=== PATIENT | female | born 1940 | race Caucasian/White ===

== ENCOUNTER 2019-07-29 15:28 | Inpatient (IN) | payer MEDICARE, BC ==
[~2019-07-29] VITALS: Ht 154.9 cm; Wt 51.3 kg
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
--- NOTE | 2019-07-29 15:51 | NUR ---
CALLED PT DAUGHTER PER PT REQUEST. JOVAN [phone] LEFT A MESSAGE
[2019-07-29 16:43] LABS: BASOPHILS # (AUTO) 0.1 /CMM (0.0-0.2); BASOPHILS % (AUTO) 0.2 % (0.0-2.0); EOSINOPHILS % (AUTO) 0.8 % (0.0-6.0); HEMATOCRIT 35 % (33-45); LYMPHOCYTES # (AUTO) 22.3 /CMM (0.8-4.8); LYMPHOCYTES % (AUTO) 79.9 % (20.0-44.0); MEAN CORPUSCULAR HGB CONC 31 g/dl (31.0-36.0); MEAN CORPUSCULAR VOLUME 89 fL (82-100); MONOCYTES # (AUTO) 0.5 /CMM (0.1-1.30); MONOCYTES % (AUTO) 1.8 % (2.0-12.0); NEUTROPHILS # (AUTO) 4.8 /CMM (1.8-8.9); NEUTROPHILS % (AUTO) 17.3 % (43.0-81.0); PLATELET COUNT (AUTO) 238 /CMM (150-450); RED BLOOD CELL COUNT(AUTO) 3.94 MIL/uL (4.0-5.2)
[2019-07-29 16:56] LABS: CALCIUM, SERUM 8.6 mg/dL (8.5-10.1); CARBON DIOXIDE 27 mmol/L (21-32); CHLORIDE 108 mmol/L (98-107); CREATININE 1.6 mg/dL (0.6-1.3); GLUCOSE 174 mg/dL (74-106); POTASSIUM 4.5 mmol/L (3.5-5.1); SODIUM SERUM 141 mmol/L (136-145); UREA NITROGEN, BLOOD 24 mg/dL (7-18)
[2019-07-29 17:46] LABS: MONOCYTES % (MANUAL) 1 % (0-11.0); NEUTROPHILS % (MANUAL) 19 (42-76)
[2019-07-29 17:50] LABS: LYMPHOCYTES % (MANUAL) 75 % (16-48); REACTIVE LYMPHOCYTES 5 % (0-0)
--- NOTE | 2019-07-29 18:16 | NUR ---
TURNED IN MOVE SHEET TO ADMITTING
[2019-07-29] MEDS ORDERED: ONDANSETRON 4 MG TAB.RAPDIS SL ONE (18:30)
[2019-07-29] MEDS ORDERED: HYDROCODONE/APAP 5/325MG 1 EACH TABLET PO ONE (18:30)
--- NOTE | 2019-07-29 18:30 | NUR ---
GYPSY THE BONDING MACHINE TENDER CALLED FROM [place] [phone]
[2019-07-29] MEDS ORDERED: HYDROCODONE/APAP 5/325MG 1 EACH TABLET ONE (18:50)
[2019-07-29] MEDS ORDERED: ONDANSETRON 4 MG TAB.RAPDIS ONE (18:50)
--- NOTE | 2019-07-29 18:59 | NUR ---
CALLED GYPSY BACK,THEY WILL CALL BACK FOR UPDATES REGARDING IF MD WILL ACCEPT PATIENT
[2019-07-29] MEDS ORDERED: FOLI0.8T PO (19:29)
[2019-07-29] MEDS ORDERED: ATOR20TA PO (19:29)
[2019-07-29] MEDS ORDERED: FERR-68 PO (19:29)
[2019-07-29] MEDS ORDERED: MEMA10TA PO (19:29)
[2019-07-29] MEDS ORDERED: BUPR100T7 PO (19:29)
[2019-07-29] MEDS ORDERED: CITA10TA9 PO (19:29)
[2019-07-29] MEDS ORDERED: OMEP20CA15 PO (19:29)
[2019-07-29] MEDS ORDERED: ALPR0.25 PO (19:29)
[2019-07-29] MEDS ORDERED: PYRI60TA PO (19:35)
[2019-07-29] MEDS ORDERED: MAG HYDROX/AL HYDROX/SIMETH 30 ML UDC PO PRN (20:00)
[2019-07-29] MEDS ORDERED: ACETAMINOPHEN 325 MG TABLET PO PRN (20:00)
[2019-07-29] MEDS ORDERED: MAGNESIUM HYDROXIDE 30 ML UDC PO PRN (20:00)
[2019-07-29] MEDS ORDERED: Z GUARD REMEDY 2 OZ OINT TP PRN (20:00)
[2019-07-29] MEDS ORDERED: ONDANSETRON HCL/PF 4 MG/2 ML VIAL IVP PRN (20:00)
[2019-07-29] MEDS ORDERED: CEFTRIAXONE 1GM BAG (ER ONLY) 50 ML IV ONE (20:01)
--- NOTE | 2019-07-29 20:20 | NUR ---
BED ASSIGNMENT [facility] [phone]
--- NOTE | 2019-07-29 20:30 | NUR ---
DR. SEGURA ON THE PHONE WITH DR. BARNETT
[2019-07-29] MEDS ORDERED: ONDANSETRON HCL/PF 4 MG/2 ML VIAL IV STA (20:32)
[2019-07-29] MEDS ORDERED: MORPHINE SULFATE INJ 2 MG/ML DISP.SYRIN IV STA (20:32)
[2019-07-29] MEDS ORDERED: ONDANSETRON HCL/PF 4 MG/2 ML VIAL ONE (20:42)
[2019-07-29 20:43] LABS: APPEARANCE,URINE Clear (CLEAR); BILIRUBIN,URINE SMALL (NEGATIVE); BLOOD, URINE Trace-intact Ery/uL (NEGATIVE); COLOR,URINE Yellow (YELLOW); KETONES,URINE Trace (NEGATIVE); LEUKOCYTE ESTERASE ,URINE Negative (NEGATIVE); NITRITE, URINE Negative (NEGATIVE); PROTEIN,URINE Negative (NEGATIVE); UGLUCOSE Negative (NEGATIVE); UROBILINOGEN,URINE 0.2 EU/dL (0.2)
[2019-07-29] MEDS ORDERED: MORPHINE SULFATE INJ 2 MG/ML DISP.SYRIN ONE (20:43)
--- NOTE | 2019-07-29 20:49 | NUR ---
report given to lavinia downing for lanette pt will be transported to 3rd floor
[2019-07-29 20:55] VITALS: BP 123/85
--- NOTE | 2019-07-29 20:55 | NUR ---
hearing impaired teacher NOTE PT ARRIVED TO FLOOR VIA GURNEY ACCOMPANIED BY ER STAFF AND DAUGHTER. PT ARRIVED IN STABLE CONDITION A/O X4, NO SIGNS OF SOB OR DISTRESS, PAIN CURRENTLY TOLERABLE. IV IN L AC#[address] ALL CURRENT NEEDS ATTENDED TO. BED LOW, LOCKED, UPPER RAILS UP, AND CALL LIGHT WITHIN REACH. WILL CONT. TO MONITOR. BODY ASSESSED, AND ALL BELONGINGS ACCOUNTED AND SIGNED FOR. MD AWARE OF PT ARRIVAL.
[2019-07-29 20:58] LABS: WBC,URINE 0-2 /HPF (0-3)
[2019-07-29 20:59] LABS: BACTERIA,URINE Few /HPF (None Seen); SQUAMOUS EPITHELIAL CELL,UR Moderate /HPF (None Seen)
[2019-07-29] MEDS: IV NS 0.9% 1,000 ML IV PRN (21:51)
[2019-07-29 23:35] LABS: BASOPHILS % (AUTO) 0.2 % (0.0-2.0); EOSINOPHILS % (AUTO) 0.4 % (0.0-6.0); HEMATOCRIT 33 % (33-45); HEMOGLOBIN 10.3 g/dL (11.5-14.8); LYMPHOCYTES # (AUTO) 23.1 /CMM (0.8-4.8); LYMPHOCYTES % (AUTO) 75.3 % (20.0-44.0); MEAN CORPUSCULAR HGB CONC 31 g/dl (31.0-36.0); MEAN CORPUSCULAR VOLUME 89 fL (82-100); MONOCYTES # (AUTO) 0.5 /CMM (0.1-1.30); MONOCYTES % (AUTO) 1.5 % (2.0-12.0); NEUTROPHILS # (AUTO) 6.9 /CMM (1.8-8.9); NEUTROPHILS % (AUTO) 22.6 % (43.0-81.0); PLATELET COUNT (AUTO) 219 /CMM (150-450)
[2019-07-29 23:39] LABS: WHITE BLOOD COUNT (AUTO) 30.7 K/uL (4.3-11.0)
[2019-07-30 00:01] VITALS: BP 128/62
[2019-07-30] MEDS: ALPRAZOLAM 0.25 MG TABLET PO PRN ×2 (00:30→10:18)
--- NOTE | 2019-07-30 00:30 | NUR ---
segment assembler NOTE PT REQUESTING FOR XANAX 0.25 MG PO FOR ANXIETY. WILL CONT. TO MONITOR.
[2019-07-30 01:21] LABS: LYMPHOCYTES % (MANUAL) 83 % (16-48); MONOCYTES % (MANUAL) 1 % (0-11.0); NEUTROPHILS % (MANUAL) 16 (42-76)
--- NOTE | 2019-07-30 01:30 | NUR ---
OIL FIELD EQUIPMENT MECHANIC NOTE PT NOTED TO BE IN STABLE CONDITION, CURRENTLY RESTING. WILL CONT. TO MONITOR.
[2019-07-30] MEDS: MORPHINE SULFATE INJ 2 MG/ML DISP.SYRIN IV PRN ×2 (03:25→09:12)
--- NOTE | 2019-07-30 03:25 | NUR ---
TECHNICAL CONSULTANT NOTE PRN MORPHINE 1 MG IV GIVEN FOR PAIN IN STERNUM 04/05. WILL CONT. TO MONITOR.
[2019-07-30 04:00] VITALS: BP 155/79
--- NOTE | 2019-07-30 04:00 | NUR ---
BEHAVIORAL SCIENCE CHAIR NOTE JELENA CAMPBELL NOTIFIED OF PT PAIN UNRELIEVED BY MORPHINE 1 MG IV. PER JELENA, WAIT UNTIL 429, IF PAIN IS STILL UNRELIEVED, NEW ORDER FOR ONE TIME DOSE OF MORPHINE 1 MG IV. WILL CONT TO MONITOR PT'S PAIN.
[2019-07-30] MEDS ORDERED: MORPHINE SULFATE INJ 2 MG/ML DISP.SYRIN IV ONE (04:30)
--- NOTE | 2019-07-30 04:37 | NUR ---
RELIABILITY TECHNOLOGIST NOTE ONE TIME DOSE OF MORPHINE 1 MG IV GIVEN TO PT FOR STERNAL PAIN 06/05. WILL CONT. TO MONITOR.
--- NOTE | 2019-07-30 05:05 | NUR ---
learning and development intern NOTE PT NOTED WITH NO URINE OUTPUT, BLADDER SCANNER USED, WITH 103 ML NOTED. JELENA CAMPBELL NOTIFIED, PER JLEENA, TORY TO MONITOR.
[2019-07-30 06:19] LABS: BASOPHILS % (AUTO) 0.1 % (0.0-2.0); EOSINOPHILS % (AUTO) 0.7 % (0.0-6.0); HEMATOCRIT 31 % (33-45); HEMOGLOBIN 9.8 g/dL (11.5-14.8); LYMPHOCYTES % (AUTO) 79.1 % (20.0-44.0); MEAN CORPUSCULAR HGB CONC 32 g/dl (31.0-36.0); MEAN CORPUSCULAR VOLUME 89 fL (82-100); MONOCYTES # (AUTO) 0.5 /CMM (0.1-1.30); MONOCYTES % (AUTO) 1.7 % (2.0-12.0); NEUTROPHILS # (AUTO) 5.3 /CMM (1.8-8.9); NEUTROPHILS % (AUTO) 18.4 % (43.0-81.0); PLATELET COUNT (AUTO) 202 /CMM (150-450); RED BLOOD CELL COUNT(AUTO) 3.46 MIL/uL (4.0-5.2)
--- NOTE | 2019-07-30 06:20 | NUR ---
REGISTRATION REP NOTE PT REMAINS IN STABLE CONDITION A/O X4,AWAKE, WITH DAUGHTER AT BEDSIDE. NO SIGNS OF SOB OR DISTRESS, PAIN CURRENTLY TOLERABLE. TELE MONITOR: SR 62. IV IN L AC#[address] WITH IVF INFUSING. ALL CURRENT NEEDS ATTENDED TO. BED LOW, LOCKED, UPPER RAILS UP, AND CALL LIGHT WITHIN REACH. WILL CONT. TO MONITOR AND ENDORSE TO NEXT SHIFT FOR ADRIEN.
[2019-07-30 06:27] LABS: CALCIUM, SERUM 8.2 mg/dL (8.5-10.1); CREATININE 1.3 mg/dL (0.6-1.3); MAGNESIUM 2.2 mg/dL (1.8-2.4); POTASSIUM 3.9 mmol/L (3.5-5.1)
[2019-07-30 06:44] LABS: THYROID STIMULATING HORMONE 2.557 uIU/mL (0.358-3.74)
[2019-07-30 08:00] VITALS: BP 135/69
--- NOTE | 2019-07-30 08:00 | NUR ---
APPLICATIONS ARCHITECT AM NOTES PT A/O X4,AWAKE, WITH DAUGHTER AT BEDSIDE. NO SIGNS OF SOB OR DISTRESS, PAIN CURRENTLY TOLERABLE. TELE MONITOR: SR 62. IV IN L AC#[address] WITH IVF INFUSING. BED LOW, LOCKED, UPPER RAILS UP, AND CALL LIGHT WITHIN REACH. WILL CONT. TO MONITOR
[2019-07-30] MEDS ORDERED: OMEPRAZOLE 20 MG CAPSULE.DR PO SCH (09:00)
[2019-07-30] MEDS: FERROUS SULFATE (325 MG) 325 MG/TAB TABLET PO SCH (09:08)
[2019-07-30] MEDS: PYRIDOSTIGMINE BROMIDE 60 MG TABLET PO SCH ×3 (09:09→20:12)
[2019-07-30] MEDS: PANTOPRAZOLE 40 MG TABLET.DR PO SCH (09:10)
[2019-07-30] MEDS: FOLIC ACID 1 MG TABLET PO SCH (09:10)
[2019-07-30] MEDS: MEMANTINE HCL 5 MG TABLET PO SCH ×2 (09:10→17:18)
[2019-07-30] MEDS: ATORVASTATIN 10 MG TABLET PO SCH (09:10)
[2019-07-30] MEDS: buPROPion SR 100 MG TABLET.ER PO SCH ×2 (09:10→17:18)
[2019-07-30] MEDS: CITALOPRAM HYDROBROMIDE 10 MG TABLET PO SCH (09:10)
[2019-07-30] MEDS: HYDROCODONE/APAP 5/325MG 1 EACH TABLET PO PRN ×2 (10:10→21:10)
[2019-07-30 12:41] LABS: BASOPHILS % (AUTO) 0.1 % (0.0-2.0); EOSINOPHILS % (AUTO) 0.6 % (0.0-6.0); HEMATOCRIT 32 % (33-45); HEMOGLOBIN 10.2 g/dL (11.5-14.8); LYMPHOCYTES # (AUTO) 23.1 /CMM (0.8-4.8); LYMPHOCYTES % (AUTO) 80.7 % (20.0-44.0); MEAN CORPUSCULAR HGB CONC 32 g/dl (31.0-36.0); MEAN CORPUSCULAR VOLUME 93 fL (82-100); MONOCYTES # (AUTO) 0.6 /CMM (0.1-1.30); MONOCYTES % (AUTO) 2.2 % (2.0-12.0); NEUTROPHILS # (AUTO) 4.7 /CMM (1.8-8.9); NEUTROPHILS % (AUTO) 16.4 % (43.0-81.0); PLATELET COUNT (AUTO) 207 /CMM (150-450); WHITE BLOOD COUNT (AUTO) 28.7 K/uL (4.3-11.0)
[2019-07-30] MEDS: HYDROCODONE/APAP 10/325MG 1 EA TABLET PO PRN ×2 (13:06→17:18)
--- NOTE | 2019-07-30 16:34 | NUR ---
PT IS HAVING DIFFICULTY VOIDING.ENCOURAGE PT TO PLAY HER HAND ON THE COLD WATER TO GIVE HER URGE TO VOID WHILE SHE WAS IN THE BEDPAN.PT VOIDED 100 ML CLEAR YELLOW URINE OUTPUT.POST VOID RESIDUAL OF 130 ML URINE.
--- NOTE | 2019-07-30 16:35 | NUR ---
ENCOURAGED INCREASE FLUID INTAKE.
--- NOTE | 2019-07-30 17:50 | NUR ---
NOTIFIED CRISTI GOMEZ NP OF PT'S BLD C/S RESULT(PRELIMINARY RESULT) OF GRAM POSITIVE COCCI WITH ORDER TO REPEAT BLD C/S X2 AND CARRIED OUT.
[2019-07-30] MEDS: SYMBICORT INH SCH (17:57)
--- NOTE | 2019-07-30 19:00 | NUR ---
CALLED PHARMACY REGARDING PT'S MESTIGNON DUE AT 1700 2ND TIME BUT IS STILL NOT DELIVERED IN THE CASSETTE.WILL ENDORSE TO COLLATING MACHINE OPERATOR.
--- NOTE | 2019-07-30 19:45 | NUR ---
MS RN OPENING NOTES RECEIVED PATIENT FROM MORNING SHIFT, ALERT AND ORIENTED X 2 WITH EPISODES OF CONFUSION. DAUGHTER ON BEDSIDE; PATIENT IS VERBALLY RESPONSIVE AND ABLE TO FOLLOW DIRECTIONS. BREATHING REGULAR AND UNLABORED ON ROOM AIR. LEFT AC G20 IV LINE INTACT AND PATENT INFUSING WELL WITH NO BLEEDING OR S/S OF INFECTION/INFILTRATION NOTED. BODY ASSESSMENT DONE, STILL SEEN WITH STERNAL AREA AND RIGHT LEG BRUISING; RIGHT ANKLE MINIMAL SWELLING. COMPLAINED OF 6/10 STERNAL PAIN; NON-PHARMACOLOGICAL INTERVENTIONS PROVIDED. ICE PACK PLACED ON RIGHT ANKLE. BED LOW AND LOCKED ON SEMI FOWLERS POSITION. CALL LIGHT IN REACH. WILL CONTINUE TO MONITOR.
[2019-07-30 20:00] VITALS: BP 121/66
[2019-07-30] MEDS ORDERED: CEFTRIAXONE 1 G in IV D5W 50 ML IV SCH (20:00)
--- NOTE | 2019-07-30 21:15 | NUR ---
MS RN NOTES COMPLAINED OF 7/10 STERNAL AREA PAIN, NORCO 5/325 GIVEN BY MOUTH. NON-PHARMACOLOGICAL INTERVENTIONS PROVIDED. VITAL SIGNS WNL. WILL CONTINUE TO MONITOR.
[2019-07-30] MEDS: IV NS 0.9% 1,000 ML IV PRN (21:28)
[2019-07-30 22:00] VITALS: BP 122/66
[2019-07-31] MEDS: MORPHINE SULFATE INJ 2 MG/ML DISP.SYRIN IV PRN (01:33)
--- NOTE | 2019-07-31 01:45 | NUR ---
MS RN NOTES COMPLAINED OF 9/10 STERNAL AREA PAIN, MORPHINE 1MG GIVEN IV PUSH. NON-PHARMACOLOGICAL INTERVENTIONS PROVIDED. VITAL SIGNS WNL. WILL CONTINUE TO MONITOR.
--- NOTE | 2019-07-31 03:00 | NUR ---
MS RN NOTES NOTED WITH 1 EPISODE OF VOMITING WITH MODERATE BROWNISH COLORED EMESIS. PATIENT ALSO COMPLAINED OF NAUSEA. ZOFRAN 4MG GIVEN IV PUSH. WILL CONTINUE TO MONITOR.
--- NOTE | 2019-07-31 06:35 | NUR ---
MS RN CLOSING NOTES PATIENT IN BED ALERT AND ORIENTED X 2 WITH EPISODES OF CONFUSION; FORGETFUL. VERBALLY RESPONSIVE AND ABLE TO FOLLOW DIRECTIONS. AFEBRILE WITH NO S/S OF DISTRESS OBSERVED. LEFT AC G20 IV LINE INTACT AND PATENT INFUSING WELL WITH NO BLEEDING OR S/S OF INFECTION/INFILTRATION NOTED. STILL COMPLAINS OF STERNAL PAIN; NON-PHARMACOLOGICAL INTERVENTIONS PROVIDED. NO NOTED EPISODE OF NAUSEA/VOMITING OF THE TIME. BED LOW AND LOCKED ON SEMI FOWLERS POSITION. CALL LIGHT IN REACH. WILL ENDORSE TO MORNING SHIFT FOR ADRIEN.
[2019-07-31 07:05] LABS: BASOPHILS % (AUTO) 0.1 % (0.0-2.0); EOSINOPHILS % (AUTO) 0.7 % (0.0-6.0); HEMATOCRIT 32 % (33-45); LYMPHOCYTES # (AUTO) 16.2 /CMM (0.8-4.8); LYMPHOCYTES % (AUTO) 71.7 % (20.0-44.0); MEAN CORPUSCULAR HGB CONC 31 g/dl (31.0-36.0); MEAN CORPUSCULAR VOLUME 90 fL (82-100); MONOCYTES # (AUTO) 0.4 /CMM (0.1-1.30); MONOCYTES % (AUTO) 1.7 % (2.0-12.0); NEUTROPHILS # (AUTO) 5.8 /CMM (1.8-8.9); NEUTROPHILS % (AUTO) 25.8 % (43.0-81.0); PLATELET COUNT (AUTO) 186 /CMM (150-450); RED BLOOD CELL COUNT(AUTO) 3.57 MIL/uL (4.0-5.2); WHITE BLOOD COUNT (AUTO) 22.6 K/uL (4.3-11.0)
[2019-07-31 07:37] LABS: CALCIUM, SERUM 8.2 mg/dL (8.5-10.1); CREATININE 1.2 mg/dL (0.6-1.3); POTASSIUM 4.6 mmol/L (3.5-5.1)
[2019-07-31] MEDS: HYDROCODONE/APAP 10/325MG 1 EA TABLET PO PRN (07:52)
[2019-07-31 08:00] VITALS: BP 143/54
--- NOTE | 2019-07-31 08:00 | NUR ---
MS RN AM NOTES PATIENT IN BED ALERT AND ORIENTED X 2 WITH EPISODES OF CONFUSION; FORGETFUL. VERBALLY RESPONSIVE AND ABLE TO FOLLOW DIRECTIONS. AFEBRILE WITH NO S/S OF DISTRESS OBSERVED. LEFT AC G20 IV LINE INTACT AND PATENT INFUSING WELL WITH NO BLEEDING OR S/S OF INFECTION/INFILTRATION NOTED. STILL COMPLAINS OF STERNAL PAIN;PAIN MGT GIVEN ORDERED. NON-PHARMACOLOGICAL INTERVENTIONS PROVIDED. NO NOTED EPISODE OF NAUSEA/VOMITING OF THE TIME. BED LOW AND LOCKED ON SEMI FOWLERS POSITION. DAUGHTER,MAKENNA VERBALIZED HER FRUSTRATIONS THAT NOTHING WAS DONE FOR THE PAST 2 DAYS SINCE THE PT WAS IN ER,NO X-RAY OF THE RLE WAS DONE IN ER PROMISED BY DR SEGURA AND TO THE ADMITTING DOCTOR IN THE FLOOR WELL.PT'S RLE WAS X-RAYED NOT TILL YESTERDAY EVENING ONLY. MAKENNA WANTS TO TRANSFER THE PT JOSÉ MANUEL TO [facility] FOR PT'S PMD TO SEE HER. PAGED NHUNG COLIN.CALL LIGHT PLACED WITHIN REACH.
[2019-07-31] MEDS: CITALOPRAM HYDROBROMIDE 10 MG TABLET PO SCH (08:06)
[2019-07-31] MEDS: PANTOPRAZOLE 40 MG TABLET.DR PO SCH (08:06)
[2019-07-31] MEDS: FERROUS SULFATE (325 MG) 325 MG/TAB TABLET PO SCH (08:06)
[2019-07-31] MEDS: FOLIC ACID 1 MG TABLET PO SCH (08:06)
[2019-07-31] MEDS: ATORVASTATIN 10 MG TABLET PO SCH (08:07)
[2019-07-31] MEDS: MEMANTINE HCL 5 MG TABLET PO SCH (08:07)
[2019-07-31] MEDS: buPROPion SR 100 MG TABLET.ER PO SCH (08:07)
--- NOTE | 2019-07-31 08:33 | NUR ---
CALLED AND SPOKE TO NHUNG PEREZ REGARDING PT'S DAUGHTER,MAKENNA WANTING TO TRANSFER PT TO [facility] AND NOTIFIED HIM OF THE X-RAY ANKLE RESULT.WITH OKAYED ORDER FOR PT TO GO AMA AND JUST IMMOBILIZE THE RT FOOT.ANA WANR Addendum: 07/31/19 at 0839 by MOE MEI RN ANA WANTS ORTHO TO EVALUATE THE PT.NOTIFIED LISETH PALACIOS ALSO EXPLAINED THE CONSEQUENCES OF TRANSFERRING PT TO THE WHEELCHAIR TO THE CAR WHICH MAY AGGRAVATE THE FX.EXPLAINED ALL THIS TO DAUGHTER,MAKENNA BUT SHE STILL INSISTS TO TRANSFER THE PT TO [facility] SINCE THE PT HAS HER PMD IN [facility].
[2019-07-31] MEDS: SYMBICORT INH SCH (09:13)
[2019-07-31] MEDS: PYRIDOSTIGMINE BROMIDE 60 MG TABLET PO SCH (09:13)
--- NOTE | 2019-07-31 09:35 | NUR ---
PT WENT AMA VIA PRIVATE CAR.SIGNED AMA PAPERS.ASSISTED PT TO THE CAR WITH 2 PERSON ASSIST.PT AND DAUGHTER,MAKENNA EXPRESSED HER GREAT APPRECIATION TO THE [facility] NURSES WHO ATTENDED TO HER.
--- NOTE | 2019-07-31 09:40 | NUR ---
INFORMED NHUNG COLIN AND FLORIST HELPER,CHOLO,CHARGE NURSE OF PT'S AMA.
== END 2019-07-31 09:45 | disposition left against medical advice (07) | DRG 564 ==
LOC: ER 15:34 → TELE 20:21 → MED 07-30 08:32
PROVIDERS: ADMIT Registered Nurse; ATTEND Nurse Practitioner Acute Care
DX: S22.22XA Fracture of body of sternum, initial encounter for closed fracture (principal); N17.0 Acute kidney failure with tubular necrosis; C91.10 Chronic lymphocytic leukemia of B-cell type not having achieved remission; E87.1 Hypo-osmolality and hyponatremia; E86.0 Dehydration; F32.9 Major depressive disorder, single episode, unspecified; D50.9 Iron deficiency anemia, unspecified; E86.1 Hypovolemia; F41.9 Anxiety disorder, unspecified; K21.9 Gastro-esophageal reflux disease without esophagitis; J44.9 Chronic obstructive pulmonary disease, unspecified; F03.90 Unspecified dementia, unspecified severity, without behavioral disturbance, psychotic disturbance, mood disturbance, and anxiety; K44.9 Diaphragmatic hernia without obstruction or gangrene; Y93.9 Activity, unspecified; Y92.89 Other specified places as the place of occurrence of the external cause; V43.52XA Car driver injured in collision with other type car in traffic accident, initial encounter; Y92.410 Unspecified street and highway as the place of occurrence of the external cause; S82.891A Other fracture of right lower leg, initial encounter for closed fracture
CPT/HCPCS: 36415; 71250-TC; 73590-TC; 73610-TC; 80048-TC; 80061-TC; 81000-TC; 83735-TC; 84100-TC; 84443-TC; 84484-TC; 85025-TC; 87040-TC; 87081-TC; 87086-TC; 97112-TC; 97530-TC; G0378; J0696; J2270; J2405; J7030; J7060; Q0162

== ENCOUNTER 2021-06-30 21:09 | Emergency (ER) | payer MEDICARE, BC ==
[~2021-06-30] VITALS: Ht 162.6 cm; Wt 45.4 kg
[~2021-06-30 21:09] MED LIST: ALPR0.25 PO; ATOR20TA PO; BUPR100T7 PO; CITA10TA9 PO; FERR-68 PO; FOLI0.8T3 PO; MEMA10TA PO; OMEP20CA15 PO; PYRI60TA PO
--- NOTE | 2021-06-30 21:15 | NUR ---
BIBRA. COUGH, SOB AND NOT FEELING WELL TODAY. PT ALERT AND ORIENTED X3. BROUGHT IN ON A STRETCHER. PLACED ON A MONITOR AND POX.
--- NOTE | 2021-06-30 21:20 | NUR ---
PT ON O2 3LPM SATTING AT 94%; TOLERATING WELL. BILAT LUNG SOUNDS CLEAR. COUGHING NOTED
[2021-06-30 21:39] VITALS: BP 129/72
--- NOTE | 2021-06-30 22:00 | NUR ---
UPDATED MAKENNA DE LEON ON PT'S CONDITION. MAKENNA [phone]
--- NOTE | 2021-06-30 22:15 | NUR ---
COUNCILLOR AB[employer]IGINAL [employer]AND COUNCIL AT PT'S BEDSIDE
--- NOTE | 2021-06-30 22:40 | NUR ---
COVID SWAB DONE AND SENT TO LAB
[2021-06-30 22:46] LABS: BASOPHILS % (AUTO) 0.3 % (0.0-2.0); HEMATOCRIT 30 % (33-45); HEMOGLOBIN 9.8 g/dL (11.5-14.8); LYMPHOCYTES % (AUTO) 36.7 % (20.0-44.0); MEAN CORPUSCULAR HGB CONC 33 g/dl (31.0-36.0); MEAN CORPUSCULAR VOLUME 94 fL (82-100); MONOCYTES # (AUTO) 0.2 K/uL (0.1-1.30); MONOCYTES % (AUTO) 1.6 % (2.0-12.0); NEUTROPHILS # (AUTO) 6.6 K/uL (1.8-8.9); NEUTROPHILS % (AUTO) 60.4 % (43.0-81.0); PLATELET COUNT (AUTO) 376 K/uL (150-450); RED BLOOD CELL COUNT(AUTO) 3.22 MIL/uL (4.0-5.2); WHITE BLOOD COUNT (AUTO) 10.9 K/uL (4.3-11.0)
--- NOTE | 2021-06-30 22:53 | NUR ---
Patient and her daughter does not wish to proceed with medical care recommended by Dr. Goodwin. Patient and her daughter given information related to possible complications, up to and including , which could occur as a result of leaving the hospital at this time. Patient and her daughter verbalized understanding of risks involved due to leaving against medical advice. Patient's daughter has signed AMA form.
[2021-06-30 22:58] LABS: CALCIUM, SERUM 8.6 mg/dL (8.5-10.1); CARBON DIOXIDE 28 mmol/L (21-32); CHLORIDE 103 mmol/L (98-107); CREATININE 1.5 mg/dL (0.6-1.3); GLUCOSE 188 mg/dL (74-106); POTASSIUM 4.9 mmol/L (3.5-5.1); SODIUM SERUM 138 mmol/L (136-145); UREA NITROGEN, BLOOD 20 mg/dL (7-18)
[2021-06-30 23:13] LABS: ALANINE AMINOTRANSFERASE 25 U/L (12-78); ALBUMIN 2.8 g/dL (3.4-5.0); ALKALINE PHOSPHATASE 222 U/L (46-116); ASPARTATE AMINOTRANSFERASE 15 U/L (15-37); BILIRUBIN,DIRECT 0.2 mg/dL (0.0-0.2); BILIRUBIN,TOTAL 0.3 mg/dL (0.2-1.0); TOTAL PROTEIN, SERUM 6.4 g/dL (6.4-8.2)
== END 2021-06-30 22:53 | disposition left against medical advice (07) ==
LOC: ER 21:17
DX: R06.02 Shortness of breath (principal); Z20.822 Contact with and (suspected) exposure to COVID-19; Z53.29 Procedure and treatment not carried out because of patient's decision for other reasons; F03.90 Unspecified dementia, unspecified severity, without behavioral disturbance, psychotic disturbance, mood disturbance, and anxiety; J44.9 Chronic obstructive pulmonary disease, unspecified; Z99.81 Dependence on supplemental oxygen; Z85.9 Personal history of malignant neoplasm, unspecified; Z79.899 Other long term (current) drug therapy; R64 Cachexia; Z68.1 Body mass index [BMI] 19.9 or less, adult
CPT/HCPCS: 36415; 71045-TC; 80048-TC; 80076-TC; 83880; 84484-TC; 85025-TC; 85730-TC; 87081-TC; C9803